=== PATIENT | male | born 1975 | race African-American/Black ===

== ENCOUNTER 2024-07-05 17:38 | Emergency (ER) | payer BC ==
[2024-07-05] MEDS ORDERED: KETOROLAC 30 MG/ML INJ ONE (17:43)
--- NOTE | 2024-07-05 19:57 | RAD REPORT ---
EXAM: XR Knee Left 3 View HISTORY: [facility] MAIN PAIN Bed Name: 8 COMPARISON: None TECHNIQUE: 3 views of the left knee were obtained. FINDINGS: No knee effusion is seen. There is no evidence of acute fracture or dislocation. Enthesopat hy at the quadriceps tendon attachment. No significant degenerative changes are seen. No soft tissue swelling or other soft tissue abnormality is present. IMPRESSION: No evidence of acute osseous abnormality. These apathy at the quadriceps tendon attachme nt.
--- NOTE | 2024-07-05 20:04 | ER ---
Nurse's Notes [facility] Name: Shilpi Cruz Age: 49 yrs Sex: Male : 1975 Arrival Date: 07/05/2024 Time: 17:38 Bed 8 Private MD: Diagnosis: Sprain of other specified parts of left knee Presentation: 07/05 17:40 Chief complaint: EMS states: TWISTED LEFT KNEE ON STAIRS WITHOUT FALL. Coronavirus bp screen: At this time, the client does not indicate any symptoms associated with coronavirus-19. Ebola Screen: No symptoms or risks identified at this time. Initial Sepsis Screen: Does the patient meet any 2 criteria? No. Patient's initial sepsis screen is negative. Does the patient have a suspected source of infection? No. Patient's initial sepsis screen is negative. Risk Assessment: Do you want to hurt yourself or someone else? Patient reports no desire to harm self or others. Onset of symptoms was July 05, 2024 at 16:00. 17:40 Method Of Arrival: EMS: [facility] bp 17:40 Acuity: MARILEE 3 bp Triage Assessment: 17:41 General: Appears uncomfortable, Behavior is calm, cooperative, appropriate for age. bp Pain: Complains of pain in left knee. EENT: No deficits noted. Neuro: No deficits noted. Cardiovascular: No deficits noted. Respiratory: No deficits noted. GI: No signs and/or symptoms were reported involving the gastrointestinal system. : No signs and/or symptoms were reported regarding the genitourinary system. Derm: No deficits noted. Musculoskeletal: Reports pain in left knee. Historical: - Allergies: 17:41 No Known Allergies; bp - Home Meds: 17:41 None [Active]; bp - PMHx: 17:41 None; bp - Immunization history:: Adult Immunizations up to date. - Infectious Disease History:: Denies. - Social history:: Smoking status: Patient denies any tobacco usage or history of. Screenin:40 [facility] ED Fall Risk Assessment (Adult) History of falling in the last 3 months, hb including since admission Yes- single mechanical fall (1 pt) Confusion or Disorientation No (0 pts) Intoxicated or Sedated No (0 pts) Impaired Gait No (0 pts) Mobility Assist Device Used No (0 pt) Altered Elimination No (0 pt) Score/Fall Risk Level 0 - 2 = Low Risk Oriented to surroundings, Maintained a safe environment, Educated pt \T\ family on fall prevention, incl call for assistance when getting out of bed. Abuse screen: Denies threats or abuse. Denies injuries from another. Nutritional screening: No deficits noted. Tuberculosis screening: No symptoms or risk factors identified. Assessment: 17:40 General: Appears in no apparent distress. uncomfortable, Behavior is calm, cooperative. hb Pain: Pain currently is 8 out of 10 on a pain scale. Neuro: Level of Consciousness is awake, alert, obeys commands, Oriented to person, place, time, situation. Cardiovascular: Patient's skin is warm and dry. Respiratory: Respiratory effort is even, unlabored, Respiratory pattern is regular, symmetrical. GI: No signs and/or symptoms were reported involving the gastrointestinal system. : No signs and/or symptoms were reported regarding the genitourinary system. EENT: No signs and/or symptoms were reported regarding the EENT system. Derm: Skin is pink, warm \T\ dry. Musculoskeletal: Reports left knee pain. 18:32 Reassessment: Patient appears in no apparent distress at this time. Patient and/or hb family updated on plan of care and expected duration. Pain level reassessed. Patient is alert, oriented x 3, equal unlabored respirations, skin warm/dry/pink. 19:24 General: Appears in no apparent distress. Behavior is calm, cooperative. Pain: bp Complains of pain in left knee. Neuro: Level of Consciousness is awake, alert, obeys commands, Oriented to person, place, time, situation. Cardiovascular: Patient's skin is warm and dry. Respiratory: Airway is patent Respiratory effort is even, unlabored, Respiratory pattern is regular, symmetrical. GI: No signs and/or symptoms were reported involving the gastrointestinal system. : No signs and/or symptoms were reported regarding the genitourinary system. EENT: No signs and/or symptoms were reported regarding the EENT system. Derm: Skin is intact, Skin is pink, warm \T\ dry. normal. Musculoskeletal: Reports pain in left knee Pain is 5 out of 10 on a pain scale. 20:30 Reassessment: Patient appears in no apparent distress at this time. No changes from al5 previously documented assessment. Patient and/or family updated on plan of care and expected duration. Pain level reassessed. Patient is alert, oriented x 3, equal unlabored respirations, skin warm/dry/pink. patient discharged home with L knee teri wrap and crutches, educations provided about crutches use and medication. Vital Signs: 17:40 BP 152 / 100; Pulse 95; Resp 16; Temp 98; Pulse Ox 100% ; bp 17:43 BP 156 / 86; Pulse 98; Resp 16; Pulse Ox 99% ; Pain 7/10; hb 18:32 BP 163 / 96; Pulse 88; Resp 16; Pulse Ox 98% on R/A; Pain 5/10; hb 19:25 BP 130 / 69; Pulse 80; Resp 18; Pulse Ox 99% on R/A; bp 19:25 Height 5 ft. 6 in. ; bp 20:00 BP 135 / 85; Pulse 91; Resp 18; Pulse Ox 98% ; al5 20:30 BP 143 / 87; Pulse 82; Resp 18; Pulse Ox 97% on R/A; al5 17:43 Pain Scale: Adult hb 18:32 Pain Scale: Adult hb ED Course: 17:40 Patient arrived in ED. bp 17:40 Susannah Collins FNP-C is PHCP. kb 17:40 David Chacko MD is Attending Physician. kb 17:40 Patient has correct armband on for positive identification. Provided Education on: use hb of call light . 17:41 Triage completed. bp 17:41 Arm band placed on. hb 17:43 Martinez Sam, RN is Primary Nurse. bp 18:18 Knee Left 3 View XRAY In Process Unspecified. EDMS 19:24 No provider procedures requiring assistance completed. Patient did not have IV access bp during this emergency room visit. 20:30 Provided Education on: discharge follow up, crutches use, medications. al5 Administered Medications: 17:47 Drug: Ketorolac IM 30 mg IM once Route: IM; Site: right deltoid; hb 18:32 Follow up: Response: No adverse reaction; Pain is decreased hb Medication: 17:40 VIS not applicable for this client. hb Outcome: 20:04 Discharge ordered by . kb 20:31 Discharged to home ambulatory, with crutches, with coworker al5 20:31 Condition: good 20:31 Discharge instructions given to patient, Instructed on discharge instructions, follow up and referral plans. medication usage, Demonstrated understanding of instructions, follow-up care, medications, Prescriptions given X 1, 20:32 Patient left the ED. al5 Signatures: Dispatcher [employer] EDMS Susannah Collins, FELICE CARTAGENA-Kristina Mishra, RN RN hb Martinez Sam RN RN bp Langhorst, Amanda, RN RN al5 Corrections: (The following items were deleted from the chart) 18:33 17:43 BP 156 / 86; Pulse 98bpm; Resp 16bpm; Pulse Ox 99%; bp hb
--- NOTE | 2024-07-05 20:04 | EDPHYS ---
Physician Documentation [facility] Name: Shilpi Cruz Age: 49 yrs Sex: Male : 1975 Arrival Date: 07/05/2024 Time: 17:38 Bed 8 Private MD: ED Physician David Chacko HPI: 07/05 19:29 This 49 yrs old Black Male presents to ER via EMS with complaints of Knee Pain. 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 States he is unable to bear weight. . Historical: - Allergies: 17:41 No Known Allergies; bp - Home Meds: 17:41 None [Active]; bp - PMHx: 17:41 None; bp - Immunization history:: Adult Immunizations up to date. - Infectious Disease History:: Denies. - Social history:: Smoking status: Patient denies any tobacco usage or history of. ROS: 19:28 Constitutional: As per HPI kb Exam: 19:28 Constitutional: This is a well developed, well nourished patient who is awake, alert, kb and in no acute distress. Head/Face: Normocephalic, atraumatic. ENT: Moist Mucous membranes Cardiovascular: Regular rate Respiratory: Respirations even and unlabored. No increased work of breathing. Talking in full sentences Abdomen/GI: Soft, non-tender. No distention Skin: Warm, dry with normal turgor. Normal color. Neuro: Awake and alert, GCS 15, oriented to person, place, time, and situation. 19:28 Musculoskeletal/extremity: Extremities: grossly normal except: noted in the left knee: pain, tenderness, ROM: intact in all extremities, Circulation is intact in all extremities. Sensation intact. Vital Signs: 17:40 BP 152 / 100; Pulse 95; Resp 16; Temp 98; Pulse Ox 100% ; bp 17:43 BP 156 / 86; Pulse 98; Resp 16; Pulse Ox 99% ; Pain 7/10; hb 18:32 BP 163 / 96; Pulse 88; Resp 16; Pulse Ox 98% on R/A; Pain 5/10; hb 19:25 BP 130 / 69; Pulse 80; Resp 18; Pulse Ox 99% on R/A; bp 19:25 Height 5 ft. 6 in. ; bp 20:00 BP 135 / 85; Pulse 91; Resp 18; Pulse Ox 98% ; al5 20:30 BP 143 / 87; Pulse 82; Resp 18; Pulse Ox 97% on R/A; al5 17:43 Pain Scale: Adult hb 18:32 Pain Scale: Adult hb MDM: 17:40 Medical Screening Exam initiated kb 19:29 Differential diagnosis: fracture, sprain, strain. Data reviewed: vital signs, nurses kb notes. Historians other than the Patient: EMS: [employer]. 19:30 Counseling: I had a detailed discussion with the patient and/or guardian regarding the kb historical points, exam findings, and any diagnostic results supporting the discharge/admit diagnosis, radiology results, the need for outpatient follow up, a orthopedic surgeon, to return to the emergency department if symptoms worsen or persist or if there are any questions or concerns that arise at home. 07/05 17:40 Order name: Knee Left 3 View XRAY; Complete Time: 20:03 kb 07/05 19:09 Order name: Wilson Wrap; Complete Time: 20:21 kb 07/05 19:09 Order name: Crutches; Complete Time: 20:21 kb Administered Medications: 17:47 Drug: Ketorolac IM 30 mg IM once Route: IM; Site: right deltoid; hb 18:32 Follow up: Response: No adverse reaction; Pain is decreased hb Disposition Summary: 07/05/24 20:04 Discharge Ordered Notes: Location: Home kb Condition: Stable kb Diagnosis - Sprain of other specified parts of left knee kb Followup: kb - With: Emergency Department - When: As needed - Reason: Worsening of condition Followup: kb - With: Private Physician - When: 2 - 3 days - Reason: Recheck today's complaints, Continuance of care, Re-evaluation by your physician Discharge Instructions: - Discharge Summary Sheet kb - Knee Sprain, Adult, [id number] kb Forms: - Medication Reconciliation Form kb - Antibiotic Education kb - Prescription Opioid Use kb - Patient Portal Instructions kb - Leadership Thank You Letter kb - Work release form al5 Prescriptions: - Diclofenac Sodium 75 mg Oral tablet, delayed release (enteric coated) - take 1 tablet ORAL route 2 times per day As needed; 30 tablet; Refills: 0, kb Product Selection Permitted Signatures: Dispatcher [employer] Susannah Dash, MERCHANDISING DIRECTOR-C MERCHANDISING DIRECTOR-Ckb Kristina Jara, RN RN Martinez Emery, RN RN bp
[2024-07-05 23:37] VITALS: TEMP 98
[2024-07-05 23:45] VITALS: BP 143/87; O2SAT 97
== END 2024-07-05 20:32 | disposition home or self-care (01) ==
LOC: ER 17:38
DX: S83.8X2A Sprain of other specified parts of left knee, initial encounter (principal)
CPT/HCPCS: 96372; 99284